=== PATIENT | female | born 1965 | race Caucasian/White ===

== ENCOUNTER 2021-03-11 13:00 | Emergency (ER) | payer OTHER ==
[~2021-03-11] VITALS: Ht 160 cm; Wt 64.3 kg
[2021-03-11 13:35] LABS: BASOPHILS % (AUTO) 1 % (0-1); EOSINOPHILS % (AUTO) 5 % (1-7); LYMPHOCYTES % (AUTO) 28 % (22-44); MEAN CORPUSCULAR HEMOGLOBIN 29.2 pg (27.0-34.8); MEAN CORPUSCULAR HGB CONC 33.4 g/dL (32.4-35.8); MEAN PLATELET VOLUME 8.2 fL (7.4-10.4); MONOCYTES % (AUTO) 8 % (2-9); NEUTROPHILS % (AUTO) 58 % (42-75); PLATELET COUNT 245 x10^3/uL (130-400); RED BLOOD COUNT 4.44 x10^6/uL (3.82-5.3); RED CELL DISTRIBUTION WIDTH 15.5 % (9.6-15.2)
--- NOTE | 2021-03-11 13:38 | NUR ---
PHLEB AT BS. WHEELED TO RESTROOM FOR URINE SAMPLE. CALL LIGHT INREACH. WILL CTM.
[2021-03-11 13:42] LABS: ALBUMIN 3.2 g/dL (3.4-5.0); ANION GAP 5 mmol/L (5-15); CALCIUM 8.7 mg/dL (8.5-10.1); CHLORIDE 106 mmol/L (98-107); CREATININE 0.67 mg/dL (0.55-1.02)
[2021-03-11 13:51] LABS: MICROSCOPIC NOT IND
--- NOTE | 2021-03-11 14:51 | NUR ---
report received from Pina CHANDRA, assuming care at this time
[2021-03-11] MEDS ORDERED: KETOROLAC 60 MG/2 ML ONE (15:24)
[2021-03-11] MEDS ORDERED: KETOROLAC 30 MG/1 ML IM ONE (15:30)
[2021-03-11 15:41] VITALS: BP 117/60
--- NOTE | 2021-03-11 15:44 | NUR ---
TASK RN: PT DISCHARGED HOME IN A STABLE CONDITION. DC INSTRUCTIONS DISCUSSED WITH PT. PT VERBALIZED UNDERSTANDING. NO FURTHER QUESTIONS OR CONCERNS EXPRESSED. PT GETTING SELF DRESSED. RN TO SHOW PT HOW TO CHECK OUT OF ED.
== END 2021-03-11 15:46 | disposition home or self-care (01) ==
LOC: ED 13:59
DX: S76.011A Strain of muscle, fascia and tendon of right hip, initial encounter (principal); F17.200 Nicotine dependence, unspecified, uncomplicated; M19.90 Unspecified osteoarthritis, unspecified site; J44.9 Chronic obstructive pulmonary disease, unspecified; Z88.8 Allergy status to other drugs, medicaments and biological substances; X58.XXXA Exposure to other specified factors, initial encounter; Y93.89 Activity, other specified; Y92.89 Other specified places as the place of occurrence of the external cause; Y99.8 Other external cause status
CPT/HCPCS: 36415; 74176; 80048; 81003; 82040; 85025; 96372; 99284; J1885